=== PATIENT | female | born 2000 | race Caucasian/White ===

== ENCOUNTER → 2025-02-20 12:27 | Outpatient (REF) | payer BC, SELFPAY ==
[2025-02-20 13:39] LABS: Hematocrit 35.4 % (37.0-47.0); Hemoglobin 12.0 g/dL (12.0-16.0); Mean Corp Hgb Conc. 33.9 g/dL (33.0-37.0); Mean Corpuscular Volume 84.7 fL (81.0-99.0); Nucleated Red Blood Cells % 0 %; Platelet Count 305 10^3/uL (130-400); Red Cell Dist. Width 18.7 % (11.5-14.5); Reticulocyte Count 1.1 % (0.4-2.8)
[2025-02-20 15:39] LABS: ALT (SGPT) 22 U/L (0-35); AST (SGOT) 26 U/L (14-36); Albumin 4.4 g/dl (3.5-5.0); Alkaline Phosphatase 71 U/L (38-126); Blood Urea Nitrogen 6 mg/dl (7-17); Calcium 9.8 mg/dl (8.4-10.2); Carbon Dioxide 25 mmol/L (22-30); Chloride 105 mmol/L (98-107); Glucose 75 mg/dl (70-99); Iron 51 ug/dl (37-170); LDH 166 U/L (120-246); Potassium 4.0 mmol/L (3.5-5.1); Sodium 136 mmol/L (135-145); Total Protein 6.9 g/dl (6.3-8.2); eGFR > 60.00
[2025-02-20 15:48] LABS: Total Iron Binding Capacity 349 ug/dl (265-497)
[2025-02-20 16:10] LABS: Ferritin 8.7 ng/ml (6.24-137)
[2025-02-20 16:41] LABS: Folate 4.4 ng/ml (2.76-20); Vitamin B12 978 pg/ml (239-931)
== END ==
LOC: REG 12:27
PROVIDERS: ATTENDING PHYSICIAN Internal Medicine Hematology & Oncology
DX: D64.9 Anemia, unspecified (principal)
CPT/HCPCS: 36415; 80053; 82607; 82728; 82746; 83010; 83540; 83550; 83615; 85025; 85045; 85652; 86880